=== PATIENT | male | born 1950 | race African-American/Black ===

== ENCOUNTER 2017-02-09 08:20 | Emergency (ER) | payer OTHER ==
[~2017-02-09] VITALS: Ht 170.2 cm; Wt 73.0 kg
[~2017-02-09 08:20] MED LIST: CARVEDILOL25 MG PO; LIBRIUM25 MG PO; LISINOPRIL40 MG PO; NEURONTIN300 MG PO
[2017-02-09] MEDS ORDERED: PERCOCET 5/31 TABLET PO (10:40)
[2017-02-09] MEDS ORDERED: OXAYDO5 MG PO ×2 (10:46→10:48)
[2017-02-09 12:45] VITALS: BP 153/100
[2017-02-13] MEDS ORDERED: ZESTRIL40 MG PO (10:20)
== END 2017-02-09 12:46 | disposition home or self-care (01) ==
LOC: EME 08:20
PROC: 0QSGXZZ Reposition Right Tibia, External Approach (ICD-10-PCS; principal; 2017-02-09)
DX: S82.851A Displaced trimalleolar fracture of right lower leg, initial encounter for closed fracture (principal); I10 Essential (primary) hypertension; W18.30XA Fall on same level, unspecified, initial encounter
CPT/HCPCS: 73610; 99281; 99285; J3010; J7120

== ENCOUNTER → 2017-02-13 | Outpatient (CLI) | payer MEDICARE ==
[~2017-02-13] MED LIST changes: +OXAYDO5 MG PO; +PERCOCET 5/31 TABLET PO; +ZESTRIL40 MG PO
== END | disposition home or self-care (01) ==
LOC: CDC 08:22
DX: Z01.810 Encounter for preprocedural cardiovascular examination (principal)
CPT/HCPCS: 93000

== ENCOUNTER 2017-02-14 05:46 | Day surgery (SDC) | payer OTHER ==
[~2017-02-14] VITALS: Ht 170.2 cm; Wt 68.2 kg
[2017-02-14 06:50] VITALS: BP 136/90
[2017-02-14 11:16] VITALS: BP 143/96
[2017-02-14 12:15] VITALS: BP 180/111
[2017-02-14 13:35] VITALS: BP 172/97
[2017-02-14 14:15] VITALS: BP 159/86
[2017-02-14 14:30] VITALS: BP 159/86
== END 2017-02-14 14:30 | disposition home or self-care (01) ==
LOC: SDC 05:46
DX: S82.851A Displaced trimalleolar fracture of right lower leg, initial encounter for closed fracture (principal); S93.04XA Dislocation of right ankle joint, initial encounter; X50.1XXA Overexertion from prolonged static or awkward postures, initial encounter; I10 Essential (primary) hypertension; F17.210 Nicotine dependence, cigarettes, uncomplicated; Z88.0 Allergy status to penicillin
CPT/HCPCS: 73610; 76000; C1713; J0690; J1170; J1885; J2405; J3010